=== PATIENT | female | born 1935 | race Caucasian/White ===

== ENCOUNTER 2017-05-28 05:07 | Inpatient (IN) | payer MEDICARE, BC ==
[~2017-05-28] VITALS: Ht 162.6 cm; Wt 56.8 kg
[~2017-05-28 05:07] MED LIST: ADLT ASA LOW81 MG PO; ADULT ASPIRIN E81 MG PO; ALPRAZOLAM0.25 MG PO; AMOXICILLIN500 MG PO; ASPIRIN EC325 MG PO; ASPIRIN81 MG PO; ATENOLOL25 MG PO; ATENOLOL50 MG; ATENOLOL50 MG PO; BETAPACE80 MG PO; BIO-FLAX1000 MG PO; CARAFATE1 GM PO; CEPHALEXIN500 MG PO; CIPRO500 MG OR; CIPROFLOXACIN250 MG OR; CIPROFLOXACN500 MG PO; COQ-1010 MG PO; COUMADIN2 MG PO; COUMADIN4 MG PO; DIGITEK0.25 MG PO; DIGOX0.125 MG PO; DILTIAZEM HCL60 MG PO; DILTIAZEM120 MG PO; DILTIAZEM60 MG PO; FRAGMIN SC; LORTAB 7.5 PO; MULTIVITAMIN PO; NO HOME MEDS; PRILOSEC20 MG/CAP PO; PROCTOCORT1 % EX; PROPAFENONE150 MG OR; SORINE80 MG PO; TENORMIN25 MG PO; WARFARIN SODIU2.5 MG PO; [UNRECOGNIZED DRUG - OTHER]
--- NOTE | 2017-05-28 05:10 | NUR ---
PATIENT TO ROOM 6 VIA PERSONAL SCCOTER CHAIR. PATIENT LIFTED UP ONTO STRETCHER, ASISTED WITH UNDRESSING INTO A GOWN. PATIENT PLACED ON MONITOR. TRIAGE COMPLETED AT BEDSIDE. AWAITING MD HICKEY.
[2017-05-28 05:56] LABS: HEMATOCRIT 43.3 % (37.0-47.0); HEMOGLOBIN 14.5 g/dl (12.0-16.0); IMMATURE GRANULOCYTES 0.3 % (0.0-1.0); MEAN CELL VOLUME 92.3 fL CALC (80.0-100.0); MEAN CORPUSCULAR HGB 30.9 pG CALC (26.0-32.0); MEAN CORPUSCULAR HGB CONC 33.5 g/L CALC (32.0-36.0); NEUT# 4.47 thou/uL (2.00-7.15); RED BLOOD COUNT 4.69 mill/uL (4.20-5.60); RED CELL DISTRI WIDTH 14.5 % (11.5-15.5)
--- NOTE | 2017-05-28 06:00 | NUR ---
RESTING WITH SIDE RAILS UP X2, CALL LIZAMA WITHIN REACH. REMAINS IN ATRIAL FIBRILLATION, WITH VENTRICULAR RESPONSE BETWEEN 80 AND A24 BPM. PATIENT DENIES PALPITATIONS OR CHEST PAIN AT THIS TIME.
[2017-05-28 06:12] LABS: ALKALINE PHOSPHATASE 119 u/l (38-126); ANION GAP 16 (6-22 (CALC)); BILIRUBIN, TOTAL 0.7 mg/dL (0.0-1.4); BUN 15 mg/dL (8-23); BUN/CREATININE RATIO 24 (12-20 (CALC)); CARBON DIOXIDE 28 mmol/l (22-30); CHLORIDE 106 mmol/l (95-108); CREATININE 0.6 mg/dL (0.5-1.0); GFR > 60 ML/MIN (>=60 (CALC)); GFR FOR AFR.AMER. > 60 ML/MIN (>=60 (CALC)); POTASSIUM 4.4 mmol/l (3.5-5.1); SGOT/AST 22 u/l (9-36); SGPT/ALT 25 u/l (11-66); SODIUM 145 mmol/l (137-146)
--- NOTE | 2017-05-28 06:45 | NUR ---
STRAIGHT CATH FOR SMALL AMOUNT CLEAR URINE WITH SOME SEDIMENT. PATIENT STATES USUAL VOLUME IS 350 MLS. HOWEVER, SHE DID SELF-CATH AT 0430. PATIENT TOLERATED PROCEDURE WELL. IS NOW RESTING WITH SIDE RAILS UP X2, AT BEDSIDE. REPORT TO Mahsa JONES RN AND CARE RELINQUISHED.
--- NOTE | 2017-05-28 06:50 | NUR ---
REPORT RECEIVED FROM VÍCTOR ENRIQUE.
--- NOTE | 2017-05-28 07:00 | NUR ---
PT MEDICATED WITH 10 MG OF CARDIAZEM, HR NOW 80-100'S AFIB. PT DENIES ANY NEEDS AT THIS TIME AND IS RESTING COMFORTABLY IN STRETCHER. CALL LIZAMA WITHIN REACH.
[2017-05-28 07:01] LABS: URINE BILIRUBIN - DIPSTICK NEGATIVE (NEGATIVE); URINE BLOOD DIPSTICK MODERATE (NEGATIVE); URINE COLOR YELLOW; URINE GLUCOSE - DIPSTICK NEGATIVE (NEGATIVE); URINE KETONE NEGATIVE (NEGATIVE); URINE PROTEIN - DIPSTICK NEGATIVE (NEG-TRACE); URINE UROBILINOGEN - DIPSTICK 0.2 E.U./dL (0.2)
[2017-05-28 07:03] LABS: URINE CLARITY SL CLOUDY; URINE LEUK ESTERASE MODERATE (NEGATIVE); URINE NITRITE - DIPSTICK POSITIVE (Negative)
[2017-05-28 07:07] LABS: URINE BACTERIA MODERATE hpf; URINE MUCUS MODERATE hpf (NONE-FEW); URINE SQUAMOUS EPITHELIAL CELL FEW EPI/hpf (0-FEW); URINE WBC 20-50 WBC/hpf (0-5)
--- NOTE | 2017-05-28 07:28 | NUR ---
SBAR PRINTED TO FLOOR
--- NOTE | 2017-05-28 07:45 | NUR ---
MS NURSE WILL CALL BACK FOR REPORT.
--- NOTE | 2017-05-28 07:55 | NUR ---
REPORT CALLED TO VÍCTOR UNGER.
--- NOTE | 2017-05-28 08:05 | NUR ---
PT ARRIVED TO FLOOR VIA STRETCHER ACCOMPANIED BY VÍCTOR MARTIN. PT TRANSFERED OVER TO BED. STAFF X 2 REQUIRED FOR TRANSFER R/T HX PARAPLEGIA. FALL PRECAUTIONS REINFORCED. PLAN OF CARE DISCUSSED. TELE UNIT IN PLACE. REPORTING OF CONCERNS ENCOURAGED. PT ORIENTED TO ROOM AND EQUIPMENT. CALL LIGHT REVIEWED AND IN REACH. PT STATES UNDERSTANDING.
--- NOTE | 2017-05-28 08:05 | NUR ---
Admission Note Report Given to: VÍCTOR ROMAN Transported by: Wheelchair X Stretcher Transported with: X Nurse Transporter X Patent IV O2 X Project Manager Senior
[2017-05-28 08:30] VITALS: BP 104/60
--- NOTE | 2017-05-28 09:00 | NUR ---
STRAIGHT CATH COMPLETED AT THIS TIME. PT ON Q4HR SCHEDULE OF SELF CATH AT HOME. 300 ML YELLOW URINE W/ SEDIMENT OBTAINED. PICTURES OF HEALED WOUNDS TO BUTTOCKS AND INNER HEELS TAKEN AND PLACED IN CHART.
[2017-05-28 11:08] VITALS: BP 90/61
--- NOTE | 2017-05-28 12:46 | NUR ---
PT SUPINE IN BED. DENIES COMPLAINTS AT THIS TIME. GREY CORDERO NOTIFIED OF TELE READING OF AFIB 126.
--- NOTE | 2017-05-28 13:37 | NUR ---
350 ML YELLOW URINE W/ SEDIMENT BY STRAIGHT CATH AT THIS TIME. PT ASSISTED TO OWN WC AT BEDSIDE.
[2017-05-28 15:15] VITALS: BP 97/64
--- NOTE | 2017-05-28 18:11 | NUR ---
STRAIGHT CATH PERFORMED. DINNER EATEN. PT TURNED ONTO SIDE FOR COMFORT.
[2017-05-28 18:44] VITALS: BP 109/68
--- NOTE | 2017-05-28 20:03 | NUR ---
BEDSIDE REPORT RECEIVED FROM VÍCTOR UNGER. PT RESTING ON RIGHT SIDE COMFORTABLY. ALERT AND ORIENTED. DENIES PAIN CURRENTLY. RESPIRATIONS EVEN AND UNLABORED ON ROOM AIR. IV FLUIDS INIIATED AND BLOOD PRESSURE MEDICATION GIVEN TO DECREASE ELEVATED HEART RATE. WILL REASSESS. PLAN OF CARE DISCUSSED. PT ENCOURAGED TO VERBALIZE CONCERNS. STATES UNDERSTANDING. SAFETY MEASURES IN PLACE. CALL LIGHT WITHIN REACH.
--- NOTE | 2017-05-28 21:44 | NUR ---
PT STRAIGHT CATHED AT 2130 PER Q4 SCHEDULE. 200ML OF YELLOW SEDIMENT URINE DRAINED FROM BLADDER. IV FLUIDS INFUSING WITHOUT DIFFICULTY. PT REPOSITIONED AT THIS TIME TO SUPINE POSITION. STATES THAT SHE WILL CALL FOR ASSISTANCE WITH REPOSITIONING PRN BECAUSE SHE WANTS TO SLEEP.
[2017-05-28 22:20] VITALS: BP 119/74
[2017-05-28 23:42] VITALS: BP 116/72
--- NOTE | 2017-05-28 23:42 | NUR ---
NURSE ASSISTED PT WITH MANUAL DISEMPACTION OF BOWEL; SMALL FORMED STOOL. NEW ORDER FOR DIGOXIN FOR TACHYCARDIA. HR AT TIME OF ADMNISTRATION WAS 120 BPM; CURRENTLY 109. WILL CONTINUE TO MONITOR.
--- NOTE | 2017-05-29 00:26 | NUR ---
DIRECTOR OF QUALITY NOTIFIED NURSE OF RHYTHM CHANGE FROM AFIB TO SINUS TACH. EKG ORDERED AND CONFIRMS SINUS TACHYCARDIA.
--- NOTE | 2017-05-29 02:00 | NUR ---
PT CONVERTED BACK INTO AFIB WITH ELEVATED HEART RATE. HEART RATE HAS BEEN ELEVATED SINCE ADMISSION. PT ASYMPTOMATIC. WILL CONTINUE TO MONITOR.
[2017-05-29 03:00] VITALS: BP 96/54
[2017-05-29 05:51] LABS: HEMATOCRIT 39.7 % (37.0-47.0); HEMOGLOBIN 13.3 g/dl (12.0-16.0); MEAN CELL VOLUME 92.8 fL CALC (80.0-100.0); MEAN CORPUSCULAR HGB 31.1 pG CALC (26.0-32.0); MEAN CORPUSCULAR HGB CONC 33.5 g/L CALC (32.0-36.0); RED BLOOD COUNT 4.28 mill/uL (4.20-5.60); RED CELL DISTRI WIDTH 14.4 % (11.5-15.5)
[2017-05-29 06:10] LABS: CHOLESTEROL HDL RATIO 3.4 (<4.4 (CALC)); MAGNESIUM 1.9 mg/dL (1.6-2.3); POTASSIUM 4.3 mmol/l (3.5-5.1)
--- NOTE | 2017-05-29 07:00 | NUR ---
RECEIVED BEDSIDE REPORT FROM BARTOLO RENEE. RESTING IN SEMI FOWLERS, RESPS EVEN AND UNLABORED ON ROOM AIR, TELE MONITOR IN PLACE. #20 LAC INFUSING WITHOUT DIFFICULTY, SITE APPEARS HEALTHY. DENIES PAIN OR DISCOMFORT. PLAN OF CARE DISCUSSED. SAFETY PRECAUTIONS REINFORCED. BED IN LOWEST POSITION WITH WHEELS LOCKED. CALL LIGHT WITHIN REACH. ENCOURAGED PT TO CALL FOR ANY NEEDS.
[2017-05-29 07:45] VITALS: BP 129/95
--- NOTE | 2017-05-29 10:00 | NUR ---
STRAIGHT CATH 375CC YELLOW URINE WITH SEDIMENT USING STERILE TECHNIQUE. RESPS EVEN AND UNLABORED ON ROOM AIR, TELE MONITOR IN PLACE. #20 LAC INFUSING WITHOUT DIFFICULTY, SITE APPEARS HEALTHY. VOICES NO NEEDS AT THIS TIME. CALL LIGHT WITHIN REACH. WILL CONTINUE TO MONITOR.
[2017-05-29 10:09] LABS: INTERNATIONAL NORMALIZED RATIO 2.1 RATIO (0.7-1.3); PROTHROMBIN TIME 23.5 SECONDS (9.0-12.5)
[2017-05-29 11:19] VITALS: BP 118/64
[2017-05-29 13:12] VITALS: BP 131/56
--- NOTE | 2017-05-29 13:40 | NUR ---
DR OLMSTEAD IN WITH PT, NEW ORDERS RECEIVED.
--- NOTE | 2017-05-29 14:30 | NUR ---
STRAIGHT CATH 350CC YELLOW URINE WITH SEDIMENT USING STERILE TECHNIQUE. PT TOLERATED WITHOUT DIFFICULTY. #20 LAC INFUSING WITHOUT DIFFICULTY, SITE APPEARS HEALTHY. DENIES PAIN OR DISCOMFORT. CALL LIGHT WITHIN REACH. WILL CONTINUE TO MONITOR.
[2017-05-29 15:35] VITALS: BP 129/66
--- NOTE | 2017-05-29 16:00 | NUR ---
RESTING IN SUPINE POSITION WITH EYES CLOSED, AWAKENS EASILY. RESPS EVEN AND UNLABORED ON ROOM AIR, TELE MONITOR IN PLACE. VOICES NO NEEDS. CALL LIGHT WITHIN REACH. WILL CONTINUE TO MONITOR.
--- NOTE | 2017-05-29 19:30 | NUR ---
BEDSIDE REPORT RECEIVED FROM VÍCTOR GLASGOW. PT RESTING IN BED SUPINE; ALERT AND ORINETED. DENIES PAIN CURRENTLY. RESPIRATIONS EVEN AND UNLABORED ON ROOM AIR. REQUESTS TO BE STRAIGHT CATHTED AT THIS TIME. COMPLETED WITH 380ML OF YELLOW URINE WITH SEDIMENT. REPOSITIONED ONTO LEFT SIDE AT THIS TIME WELL. PLAN OF CARE REVIEWED. PT ENCOURAGED TO VERBALIZE CONCERNS. STATES UNDERSTANDING. SAFETY MEASURES IN PLACE. CALL LIGHT WITHIN REACH.
[2017-05-29 20:10] VITALS: BP 124/69
--- NOTE | 2017-05-29 20:15 | NUR ---
NURSE ASSISTED PT DIGITALLY DISEMPACT SMALL BOWEL MOVEMENT.
[2017-05-30 00:15] VITALS: BP 121/61
--- NOTE | 2017-05-30 00:49 | NUR ---
IV FLUIDS COMPLETED AT THIS TIME. PT.REFUSED TO ALLOW ANOTHER BAG OF IV FLUIDS BE ADMINISTERED.
--- NOTE | 2017-05-30 01:46 | NUR ---
PT DECLINED ANY FURTHER IV FLUIDS AT THIS TIME. EDUCATED ON INDICATION OF FLUIDS AND PT STATES, "I'VE HAD ENOUGH I DO NOT NEED ANYMORE." IV SALINE LOCKED AND APPEARS HEALTHY.
[2017-05-30 04:30] VITALS: BP 114/53
[2017-05-30 04:50] VITALS: BP 115/58
--- NOTE | 2017-05-30 05:12 | NUR ---
PT ASLEEP AT THIS TIME WITH NO SIGNS OF DISTRESS NOTED. RESPIRATIONS EVEN AND UNLABORED ON ROOM AIR. SEDIMENT CONTINUES IN URINE DURING STRAIGHT CATHS. 2 SMALL BOWEL MOVEMENTS THIS SHIFT; PT NOTIFES NURSE OF URGE TO MOVE BOWELS. REPOSITIONED ONTO LEFT SIDE; PT ABLE TO ASSIST WITH REPOSITIONING. HEEL PROTECTORS REMAIN ON FEET AND THEY ARE OFFLOADED. SAFETY MEASURES IN PLACE. CALL LIGHT WITHIN REACH.
--- NOTE | 2017-05-30 06:17 | NUR ---
MODERATE AMOUNT OF BRIGHT RED BLOOD NOTED TO RECTUM; PT STATES THAT SHE HAS A HEMORROID INSIDE OF RECTUM AND BLEEDING IS NOT NEW FOR HER.
--- NOTE | 2017-05-30 07:07 | NUR ---
REPORT RECIEVED FROM VÍCTOR MCFARLAND. PT SITTING UPRIGHT IN BED. HESITANT TO LET APPLICATIONS SCIENTIST DRAW AM LABS. RATIONAL EXPLAINED TO PT. PT AGREES. PLAN OF CARE DISCUSSED. REPORTING OF CONCERNS ENCOURAED. CALL LIGHT REVIEWED AND IN REACH. PT STATES UNDERSTANDING.
[2017-05-30 08:04] VITALS: BP 117/63
[2017-05-30 08:06] VITALS: BP 117/63
[2017-05-30 08:49] LABS: INTERNATIONAL NORMALIZED RATIO 2.3 RATIO (0.7-1.3); PROTHROMBIN TIME 26.5 SECONDS (9.0-12.5)
--- NOTE | 2017-05-30 09:00 | NUR ---
STRAIGHT CATH PERFORMED. 425 ML YELLOW URINE W/ MUCUOUS OUTPUT.
[2017-05-30] MEDS ORDERED: LEVAQUIN250 MG PO (12:23)
--- NOTE | 2017-05-30 13:42 | NUR ---
Discharge instructions given. Patient verbalizes understanding of same. Discharged in stable condition via Wheelchair to Home with significant other. All belongings sent with pt.
== END 2017-05-30 13:42 | disposition home or self-care (01) | DRG 309 ==
LOC: ED 05:07 → ED-I 05:25 → ED 05:25 → ED-I 07:14 → ED 07:25 → MS2 07:26
PROVIDERS: Emergency Medicine; Nurse Practitioner Family; ADMIT Internal Medicine; ATTEND Internal Medicine
DX: I48.0 Paroxysmal atrial fibrillation (principal); T83.518A Infection and inflammatory reaction due to other urinary catheter, initial encounter; G82.21 Paraplegia, complete; L89.622 Pressure ulcer of left heel, stage 2; L89.612 Pressure ulcer of right heel, stage 2; S24.113S Complete lesion at T7-T10 level of thoracic spinal cord, sequela; N31.9 Neuromuscular dysfunction of bladder, unspecified; N39.0 Urinary tract infection, site not specified; I10 Essential (primary) hypertension; K59.00 Constipation, unspecified; B96.5 Pseudomonas (aeruginosa) (mallei) (pseudomallei) as the cause of diseases classified elsewhere; V89.2XXS Person injured in unspecified motor-vehicle accident, traffic, sequela; Z86.73 Personal history of transient ischemic attack (TIA), and cerebral infarction without residual deficits; Z79.01 Long term (current) use of anticoagulants; Y84.6 Urinary catheterization as the cause of abnormal reaction of the patient, or of later complication, without mention of misadventure at the time of the procedure
CPT/HCPCS: G0378; J0692; J1160